=== PATIENT | female | born 1995 ===

== ENCOUNTER 2024-06-21 05:05 | Day surgery (SDC) | payer OTHER ==
[2024-06-16 09:29] LABS: HEMATOCRIT 41.9 % (36.0-45.00); HEMOGLOBIN 14.5 g/dL (12.0-15.00); MEAN CELL VOLUME 87.4 fL (80.00-100.00); MEAN CORPUSCULAR HEMOGLOBIN 30.2 pg (27.00-32.0); MEAN CORPUSCULAR HGB CONC 34.6 g/dl (32.0-36.0); PLATELET COUNT 168 K/uL (150-450); RED BLOOD COUNT 4.79 M/uL (4.00-6.00); RED CELL DISTRIBUTION WIDTH 13.9 % (11.5-14.5)
[2024-06-16 09:30] LABS: URINE APPEARANCE Clear; URINE BILIRRUBIN Negative (NEGATIVE); URINE BLOOD Negative; URINE COLOR Yellow; URINE GLUCOSE Negative (NEGATIVE); URINE KETONE Negative (NEGATIVE); URINE LEUKOCYTE Trace; URINE NITRATE Negative; URINE PROTEIN Negative (NEGATIVE); URINE UROBILINOGEN 0.2 E.U./dl
[2024-06-16 09:32] LABS: INR 1.1; PROTHROMBIN TIME 11.9 SECONDS (9.0-11.5)
[2024-06-16 09:34] LABS: URINE BACTERIA 259.4 uL (0.0-1933); URINE RBC 16.7 uL (0.0-20.8); URINE WBC 5.5 uL (0.0-23.2)
[2024-06-16 09:39] VITALS: BP 101/68
[2024-06-16 10:25] LABS: ALBUMIN 4.2 gm/dL (3.4-5.0); BILIRUBIN TOTAL 0.76 mg/dL (0.3-1.2); CALCIUM 9.2 mg/dL (8.5-10.1); CREATININE SERUM 0.8 mg/dL (0.55-1.02); GFR 84.22; GLOBULINA 3.3 G/DL (2.4-3.5); POTASSIUM 4.28 mEq/L (3.5-5.1); TOTAL PROTEIN 7.5 gm/dL (6.4-8.2)
[~2024-06-21] VITALS: Ht 165.1 cm; Wt 53.5 kg
[2024-06-21] MEDS ORDERED: CEFAZOLIN SODIUM 1,000 MG VIAL IV ONE (08:00)
== END 2024-06-21 15:10 | disposition home or self-care (01) ==
LOC: CIR.AMB 05:05 → U 05:05 → CIR.AMB 07:00
PROVIDERS: ATTEND Surgery
DX: K40.30 Unilateral inguinal hernia, with obstruction, without gangrene, not specified as recurrent (principal); D21.4 Benign neoplasm of connective and other soft tissue of abdomen